=== PATIENT | female | born 1940 | race Caucasian/White ===

== ENCOUNTER 2018-01-23 13:57 | Inpatient (IN) ==
[2018-01-23] MEDS ORDERED: MethylPREDNISolone Sod Succinate Inj 125 MG/2 ML Vial IV.PUSH ONE (14:17)
--- NOTE | 2018-01-23 14:29 | ED ---
HPI General Chief Complaint: Respiratory Symptoms Stated Complaint: cough x Friday Time Seen by Provider: 01/23/18 14:11 Source: patient Mode of arrival: ambulatory Limitations: no limitations History of Present Illness The patient is a 77-year-old female who presents to the emergency department for shortness of breath. The patient states her started on Friday with a dry nonproductive cough. The patient now complains of a productive cough producing yellow to brown sputum, occasional blood within the sputum. The patient also notes increased work of breathing, worse with exertion and talking. The patient does have a history of COPD and was seen in the past by Dr. 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 The patient denies being on oxygen at home and does not use nebulizers at home. The patient states she has a history of allergies to cortisone secondary to injections and possibly prednisone. The patient is unsure if she has allergies to Solu-Medrol and Decadron. The patient denies any recent hospitalizations, travel, or surgeries. The patient denies any lower extremity edema. The patient denies any history of pulmonary embolism, DVT, or congestive heart failure. Symptoms are moderate and progressive. She denies any chest pain or tightness. MD Complaint: Reports shortness of breath Onset (ago): day(s) Context: Reports recent illness Severity: moderate Consistency/Duration: progressively worsening Relieving factors: nothing Exacerbating factors: exertion, coughing and talking Known history of: Reports COPD Associated symptoms: Reports cough, wheezing, sputum production and nausea/ vomiting Treatment prior to arrival: Reports none Related Data Home oxygen amount: none Home Medications Medication Instructions Recorded Confirmed levothyroxine 88 mcg PO DAILY 01/23/18 01/23/18 lisinopril-hydrochlorothiazide 1 tab PO DAILY 01/23/18 01/23/18 Allergies Allergy/AdvReac Type Severity Reaction Status Date / Time cortisone Allergy Severe THROAT Verified 01/23/18 14:02 CLOSES Review of Systems ROS: all other systems reviewed are negative [facility] Medical History Medical History COPD (chronic obstructive pulmonary disease) (Acute) Hypertension (Acute) Thyroid disease (Acute) Arthrosis of knee (Acute) Bilateral femoral hernia (Acute) History of hysterectomy (Acute) Surgical History Surgical History H/O thyroidectomy (Acute) History of appendectomy (Acute) History of tubal ligation (Acute) Social History Social History Substance History: No History of Abuse Second Hand Smoke Exposure: No Smoking Status: Never smoker How Often Do You Have a Drink Containing Alcohol: Never Recent Travel in [facility] within the Last 8 Weeks: No Recent Out of Country Travel within the Last 8 Weeks: No Exam Narrative Exam Narrative: GENERAL: Pleasant 77-year-old female who appears her stated age and is in moderate respiratory distress. SKIN: Focused skin assessment warm/dry. HEAD: Atraumatic. Normocephalic. EYES: Pupils equal and round. No scleral icterus. No injection or drainage. ENT: No nasal bleeding or discharge. Mucous membranes pink and moist. NECK: Trachea midline. No JVD. CARDIOVASCULAR: Regular, tachycardic with a heart rate of 110. RESPIRATORY: Tachypnea with a respiratory rate of 30. Supraclavicular retractions noted. Tight breath sounds throughout with noted wheezing. GASTROINTESTINAL: Abdomen soft, non-tender, nondistended. MUSCULOSKELETAL: No obvious deformities. No clubbing. No cyanosis. No edema. Calves are soft bilaterally. NEUROLOGICAL: Awake and alert. No obvious cranial nerve deficits. Motor grossly within normal limits. Normal speech. PSYCHIATRIC: Appropriate mood and affect; insight and judgment normal. Course Initial Documented Vital Signs Temperature 98.6 F 01/23/18 14:02 Pulse Rate 112 H 01/23/18 14:02 Respiratory Rate 18 01/23/18 14:02 Blood Pressure 136/61 01/23/18 14:02 Pulse Oximetry 98 01/23/18 14:02 Last Documented Vital Signs Temperature 98.6 F 01/23/18 14:02 Pulse Rate 105 H 01/23/18 15:03 Respiratory Rate 28 H 01/23/18 15:03 Blood Pressure 136/61 01/23/18 14:02 Pulse Oximetry 84 L 01/23/18 15:01 Medical Decision Making [facility] Narrative Medical decision making narrative: IV was established, labs are drawn and sent, and the patient was placed on cardiac telemetry monitoring and continuous pulse oximetry monitoring. The patient was administered duo nebs x3. The patient states she has a history of allergies to cortisone and prednisone, however, is unsure if she has an allergy to Solu-Medrol or Decadron. Therefore, the patient was administered Solu-Medrol 125 mg intravenously and was monitored closely in the emergency department. Chest x-ray was obtained. EKG was ordered and interpreted. Chest x-ray was unremarkable except for mild interstitial prominence and poor inspiratory effort. Potassium is low at 2.7, was replaced orally. The patient was reevaluated after nebulizers, still had tachypnea and increased work of breathing. The patient ambulated to the bathroom and her O2 sat on room air was 84%. The patient will require admission for steroids, nebulizers, and oxygen therapy. The patient agrees to plan of care. Medical Screen Exam Complete: Yes Emergency Medical Condition: Yes Differential Diagnosis Differential Diagnosis: Differential diagnosis includes COPD exacerbation, bronchitis, pneumonia, pulmonary embolism, acute coronary syndrome, pleural effusion, pneumonitis. Lab Data Lab results reviewed: Yes I reviewed the patient's lab results. Result diagrams: 01/23/18 14:25 01/23/18 14:25 Lab Results 01/23/18 01/23/18 01/23/18 Range/Units 14:25 14:25 14:25 CBC w Diff Auto diff final WBC 6.8 (4.0-11.0) th/mm3 RBC 5.34 H (4.00-5.30) mil/mm3 Hgb 15.2 (11.6-15.3) gm/dL Hct 44.1 (35.0-46.0) % MCV 82.6 (80.0-100.0) fL MCH 28.4 (27.0-34.0) pg MCHC 34.4 (32.0-36.0) % RDW 13.4 (11.6-17.2) % Plt Count 214 (150-450) th/mm3 MPV 8.6 (7.0-11.0) fL Neut % (Auto) 53.0 (16.0-70.0) % Lymph % (Auto) 33.0 (9.0-44.0) % [place] % (Auto) 10.6 H (0.0-8.0) % Eos % (Auto) 2.8 (0.0-4.0) % Baso % (Auto) 0.6 (0.0-2.0) % Neut # (Auto) 3.7 (1.8-7.7) th/mm3 Lymph # (Auto) 2.2 (1.0-4.8) th/mm3 [place] # (Auto) 0.7 (0.0-0.9) th/mm3 Eos # (Auto) 0.2 (0.0-0.4) th/mm3 Baso # (Auto) 0.0 (0.0-0.2) th/mm3 WBC Differential . Differential Comment . Sodium 140 (136-145) meq/L Potassium 2.7 L* (3.5-5.1) meq/L Chloride 99 (98-107) meq/L Carbon Dioxide 30.5 (21.0-32.0) meq/L Anion Gap 11 (5-15) meq/L BUN 20 H (7-18) mg/dL Creatinine 1.10 H (0.50-1.00) mg/dL Estimated GFR 48 L (>89) mL/min Random Glucose 154 H (74-106) mg/dL Calcium 8.3 L (8.5-10.1) mg/dL Magnesium 2.0 (1.5-2.5) mg/dL Total Bilirubin 0.8 (0.2-1.0) mg/dL AST 30 (15-37) U/L ALT 25 (10-53) U/L Alkaline Phosphatase 76 (45-117) U/L Troponin I Less than 0.02 L (0.02-0.05) ng/mL B-Natriuretic Peptide 5 (0-100) pg/mL Total Protein 7.6 (6.4-8.2) g/dL Albumin 3.6 (3.4-5.0) g/dL Imaging Data Attestation: I personally reviewed and interpreted this imaging study as follows : Radiologist's impression: Chest X-Ray 01/23/18 14:17 CONCLUSION: Cardiomegaly with mild interstitial prominence Discharge Plan Discharge Disposition Patient Disposition: 30 Still Patient Discharge Condition Condition: Stable Discharge Details Diagnosis: COPD exacerbation, Hypoxia Physicians Team ED Provider: Gato Manning Primary Care Provider: Catracho Rubio Rxs /Orders / Referrals /Forms Prescriptions: No Action levothyroxine 88 mcg Tablet 88 mcg PO DAILY RF: 0 lisinopril-hydrochlorothiazide 20-12.5 mg Tablet 1 tab PO DAILY RF: 0 Status ED Status: Pending Admission
[2018-01-23 14:39] LABS: Baso % (Auto) 0.6 % (0.0-2.0); Eos # (Auto) 0.2 th/mm3 (0.0-0.4); Eos % (Auto) 2.8 % (0.0-4.0); Hematocrit 44.1 % (35.0-46.0); Hemoglobin 15.2 gm/dL (11.6-15.3); Lymph # (Auto) 2.2 th/mm3 (1.0-4.8); Mean Corpuscular HGB Conc 34.4 % (32.0-36.0); Mean Corpuscular Hemoglobin 28.4 pg (27.0-34.0); Mean Corpuscular Volume 82.6 fL (80.0-100.0); Mean Platelet Volume 8.6 fL (7.0-11.0); Mono # (Auto) 0.7 th/mm3 (0.0-0.9); Mono % (Auto) 10.6 % (0.0-8.0); Neut # (Auto) 3.7 th/mm3 (1.8-7.7); Platelet Count 214 th/mm3 (150-450); Red Blood Count 5.34 mil/mm3 (4.00-5.30); Red Cell Distribution Width 13.4 % (11.6-17.2); White Blood Count 6.8 th/mm3 (4.0-11.0)
[2018-01-23] MEDS ORDERED: Sodium Chlor 0.9% Inj 500 ML IV.SIG SCH (15:00)
[2018-01-23 15:13] LABS: Alanine Aminotransferase 25 U/L (10-53); Albumin 3.6 g/dL (3.4-5.0); Alkaline Phosphatase 76 U/L (45-117); Anion Gap 11 meq/L (5-15); Aspartate Aminotransferase 30 U/L (15-37); Blood Urea Nitrogen 20 mg/dL (7-18); Calcium 8.3 mg/dL (8.5-10.1); Carbon Dioxide 30.5 meq/L (21.0-32.0); Chloride 99 meq/L (98-107); Glomerular Filtration Rate 48 mL/min (>89); Glucose,Random 154 mg/dL (74-106); Sodium 140 meq/L (136-145)
--- NOTE | 2018-01-23 15:18 | XR ---
EXAM DATE: 01/23/2018 2:17 PM EDT AGE/SEX: 77 years / Female INDICATIONS: Cough. CLINICAL DATA: This is the patient's initial encounter. Patient reports that signs and symptoms have been present for 2 days and indicates a pain score of 0/10. MEDICAL/SURGICAL HISTORY: Hypertension. None. COMPARISON: [facility], XR CHEST PA AND LAT, 02/19/2016. . FINDINGS: Mild interstitial prominence. Minimal bibasilar parenchymal changes. Mild cardiomegaly. No pneumothor ax. No pleural effusion. CONCLUSION: Cardiomegaly with mild interstitial prominence Electronically signed by: Jesus Colunga MD 01/23/2018 3:17 PM EDT
[2018-01-23 15:22] LABS: Total Protein 7.6 g/dL (6.4-8.2)
[2018-01-23 15:26] LABS: Potassium 2.7 meq/L (3.5-5.1)
[2018-01-23] MEDS ORDERED: Acetaminophen 325 MG Tablet PO PRN (15:48)
[2018-01-23] MEDS: guaiFENesin 600 MG ER Tablet PO SCH (22:37)
[2018-01-23] MEDS: MethylPREDNISolone Sod Succinate Inj 40 MG/ML Vial IV.PUSH SCH (22:38)
[2018-01-23] MEDS: Budesonide-Formoterol 160/4.5 MCG 6 GM Inhaler INH SCH (22:38)
[2018-01-24 07:01] LABS: Baso % (Auto) 0.3 % (0.0-2.0); Eos % (Auto) 0.1 % (0.0-4.0); Hematocrit 42.6 % (35.0-46.0); Hemoglobin 13.8 gm/dL (11.6-15.3); Lymph # (Auto) 0.8 th/mm3 (1.0-4.8); Lymph % (Auto) 18.5 % (9.0-44.0); Mean Corpuscular HGB Conc 32.5 % (32.0-36.0); Mean Corpuscular Hemoglobin 27.9 pg (27.0-34.0); Mean Corpuscular Volume 85.8 fL (80.0-100.0); Mean Platelet Volume 8.5 fL (7.0-11.0); Mono # (Auto) 0.1 th/mm3 (0.0-0.9); Mono % (Auto) 2.9 % (0.0-8.0); Neut # (Auto) 3.5 th/mm3 (1.8-7.7); Neut % (Auto) 78.2 % (16.0-70.0); Platelet Count 189 th/mm3 (150-450); Red Blood Count 4.96 mil/mm3 (4.00-5.30); Red Cell Distribution Width 12.9 % (11.6-17.2); White Blood Count 4.4 th/mm3 (4.0-11.0)
[2018-01-24] MEDS: Levothyroxine 88 MCG Tablet PO SCH (07:22)
[2018-01-24] MEDS: MethylPREDNISolone Sod Succinate Inj 40 MG/ML Vial IV.PUSH SCH ×3 (07:22→21:03)
[2018-01-24 07:37] LABS: Alanine Aminotransferase 23 U/L (10-53); Albumin 3.2 g/dL (3.4-5.0); Alkaline Phosphatase 62 U/L (45-117); Anion Gap 8 meq/L (5-15); Aspartate Aminotransferase 19 U/L (15-37); Blood Urea Nitrogen 21 mg/dL (7-18); Calcium 8.3 mg/dL (8.5-10.1); Chloride 104 meq/L (98-107); Glomerular Filtration Rate 79 mL/min (>89); Glucose,Random 162 mg/dL (74-106); Potassium 3.9 meq/L (3.5-5.1); Sodium 141 meq/L (136-145); Total Protein 7.1 g/dL (6.4-8.2)
[2018-01-24] MEDS: Lisinopril 20 MG Tablet PO SCH (09:45)
[2018-01-24] MEDS: guaiFENesin 600 MG ER Tablet PO SCH (09:45)
[2018-01-24] MEDS: Tiotropium Bromide 18 MCG/ACT Inhaler INH SCH (09:46)
[2018-01-24] MEDS: Budesonide-Formoterol 160/4.5 MCG 6 GM Inhaler INH SCH ×2 (09:46→20:55)
--- NOTE | 2018-01-24 12:44 | ECG ---
Date Performed: 01/23/2018 Time Performed: 20:40:09 PTAGE: 77 years EKG: Sinus rhythm NONSPECIFIC T-WAVE ABNORMALITY BORDERLINE ECG Since PREVIOUS TRACING , no significant change noted PREVIOUS TRACIN10/19/2012 10.19 DOCTOR: Alvin Montenegro Interpretating Date/Time 01/24/2018 12:43:07
--- NOTE | 2018-01-24 12:47 | P.HP ---
History of Present Illness Primary Care Physician: Catracho Rubio MD Chief Complaint: Shortness of breath History of Present Illness: 77-year-old female with past medical history of COPD, hyperlipidemia, obstructive sleep apnea, presented to the ED for evaluation of nonproductive cough and shortness of breath times 10-day duration however worse since Friday. Patient denies any febrile episode. She reported increasing shortness of breath with exertion and slight activity. Any oxygen at home and currently does not use any nebulizer. 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 She denies any chest pain, GI bleed, or lower extremity edema. This morning when patient was seen, she reported improvement of her symptoms however she still wheezing. - Diagnosis (1) COPD exacerbation (2) Hypoxia Review of Systems All other systems reviewed negative except as stated in HPI [facility] - History History Provided By: Patient - Medical History Medical History: Medical History (Last Updated 01/23/18 @ 14:50 by Karen Aguilar RN) COPD (chronic obstructive pulmonary disease) Hypertension Thyroid disease Arthrosis of knee Bilateral femoral hernia History of hysterectomy - Surgical History Surgical History: Surgical History (Last Updated 01/23/18 @ 14:54 by Karen Aguilar RN) H/O thyroidectomy History of appendectomy History of tubal ligation - Family History Family History: Family History (Last Updated 01/24/18 @ 12:42 by Jean Paul Peace MD) Other Heart disease - Tobacco History Second Hand Smoke Exposure: Yes Tobacco Use In Past 30 Days: No Smoking Status: Never smoker - Alcohol History How Often Do You Have a Drink Containing Alcohol: 2 to 4 times a month - Substance Use History Substance History: No History of Abuse - Travel History Recent Travel in the [place] Within the Last 8 Weeks: No Recent Travel Out of the Country Within the Last 8 Weeks: No - Immunization History Tetanus Immunization: Unsure Medications and Allergies Active Medications: Active Medications Acetaminophen (Tylenol) 650 mg PO Q4H PRN PRN Reason: Temp > 100.4 Al Hydroxide/Mg Hydroxide (Milk Of [place] Liq) 30 ml PO Q12H PRN PRN Reason: Mild Constipation Albuterol (Duoneb Neb (Prn)) 1 ampul NEB Q2HR NEB PRN PRN Reason: SHORTNESS OF BREATH Last Admin: 01/24/18 04:12 Dose: 1 ampul Albuterol (Duoneb Neb (Virgie)) 1 ampul NEB Q6HR WHILE AWAKE NEB [facility] Last Admin: 01/24/18 07:53 Dose: 1 ampul Azithromycin (Zithromax) 250 mg PO DAILY [facility] Benzonatate (Tessalon Perles) 100 mg PO Q8H PRN PRN Reason: COUGH Budesonide/Formoterol Fumarate (Symbicort 160/4.5 Mcg Inh) 2 puff INH BID [facility] Last Admin: 01/24/18 09:46 Dose: Not Given Hydrochlorothiazide (Microzide) 12.5 mg PO DAILY [facility] Last Admin: 01/24/18 09:44 Dose: 12.5 mg Sodium Chloride (Ns Inj) 500 mls @ 0 mls/hr IV.SIG BOLUS [facility] Last Infusion: 01/23/18 15:09 Dose: Infused Levothyroxine Sodium (Synthroid) 88 mcg PO DAILY@0600 [facility] Last Admin: 01/24/18 07:22 Dose: 88 mcg Lisinopril (Prinivil) 20 mg PO DAILY [facility] Last Admin: 01/24/18 09:45 Dose: 20 mg Methylprednisolone Sodium Succinate (Solumedrol Inj) 40 mg IV.PUSH Q8HR [facility] Last Admin: 01/24/18 07:22 Dose: 40 mg Ondansetron HCl (Zofran Inj) 4 mg IV.PUSH Q6H PRN PRN Reason: NAUSEA OR VOMITING Tiotropium [place] (Spiriva 18 Mcg Inh) 18 mcg INH DAILY [facility] Last Admin: 01/24/18 09:46 Dose: Not Given Allergies Allergy/AdvReac Type Severity Reaction Status Date / Time cortisone Allergy Severe THROAT Verified 01/23/18 14:02 CLOSES Home Medications Medication Instructions Recorded Confirmed Type levothyroxine 88 mcg PO DAILY 01/23/18 01/23/18 History lisinopril-hydrochlorothiazide 1 tab PO DAILY 01/23/18 01/23/18 History Exam Vital signs: Vital Signs 01/23/18 14:02 01/23/18 14:26 01/23/18 14:27 Temperature 98.6 F Pulse Rate 112 H Respiratory Rate 18 Blood Pressure 136/61 Pulse Oximetry 98 91 L 91 L 01/23/18 14:38 01/23/18 14:47 01/23/18 15:01 Temperature Pulse Rate 100 H 105 H Respiratory Rate 28 H 24 Blood Pressure Pulse Oximetry 94 L 84 L 01/23/18 15:03 01/23/18 16:01 01/23/18 16:02 Temperature Pulse Rate 105 H 109 H Respiratory Rate 28 H 18 Blood Pressure 101/50 L Pulse Oximetry 93 L 94 L 01/23/18 16:52 01/23/18 17:58 01/23/18 20:00 Temperature 98.2 F 97.6 F Pulse Rate 100 H 96 H 88 Respiratory Rate 20 18 16 Blood Pressure 105/60 113/58 L 115/58 L Pulse Oximetry 93 L 95 93 L 01/23/18 23:55 01/24/18 04:10 01/24/18 07:53 Temperature 97.8 F Pulse Rate 85 75 70 Respiratory Rate 16 18 18 Blood Pressure 112/60 Pulse Oximetry 94 L 94 L 94 L 01/24/18 08:00 01/24/18 12:00 Temperature 96.4 F L 97.2 F L Pulse Rate 104 H 89 Respiratory Rate 18 18 Blood Pressure 106/56 L 122/60 Pulse Oximetry 91 L 94 L Intake & Output 01/23/18 01/24/18 01/24/18 18:59 06:59 18:59 Intake Total 740 / 740 Balance 740 / 740 Weight 62.5 kg 63.3 kg Intake: IV 500 / 500 NS Inj 500 ML @ Wide Open IV. 500 / 500 SIG BOLUS VIRGIE Rx#:[id number] Oral 240 / 240 Other: # Voids 0 3 # Bowel Movements 0 Narrative: GENERAL: NAD SKIN: Warm and dry. HEAD: Atraumatic. Normocephalic. EYES: Pupils equal and round. No scleral icterus. No injection or drainage. ENT: No nasal bleeding or discharge. Mucous membranes pink and moist. NECK: Trachea midline. No JVD. CARDIOVASCULAR: Regular rate and rhythm. RESPIRATORY: No accessory muscle use. Clear to auscultation. Breath sounds equal bilaterally. +exp Bilateral wheezing GASTROINTESTINAL: Abdomen soft, non-tender, nondistended. Hepatic and splenic margins not palpable. MUSCULOSKELETAL: Extremities without clubbing, cyanosis, or edema. No obvious deformities. NEUROLOGICAL: Awake and alert. No obvious cranial nerve deficits. Motor grossly within normal limits. Five out of 5 muscle strength in the arms and legs. Normal speech. PSYCHIATRIC: Appropriate mood and affect; insight and judgment normal. Results - Labs CBC & Chem 7: 01/24/18 06:36 01/24/18 06:36 Labs: Laboratory Results - last 24 hr 01/23/18 01/23/18 01/23/18 14:25 14:25 14:25 CBC w Diff Auto diff final WBC 6.8 RBC 5.34 H Hgb 15.2 Hct 44.1 MCV 82.6 MCH 28.4 MCHC 34.4 RDW 13.4 Plt Count 214 MPV 8.6 Neut % (Auto) 53.0 Lymph % (Auto) 33.0 [place] % (Auto) 10.6 H Eos % (Auto) 2.8 Baso % (Auto) 0.6 Neut # (Auto) 3.7 Lymph # (Auto) 2.2 [place] # (Auto) 0.7 Eos # (Auto) 0.2 Baso # (Auto) 0.0 WBC Differential . Differential Comment . Sodium 140 Potassium 2.7 L* Chloride 99 Carbon Dioxide 30.5 Anion Gap 11 BUN 20 H Creatinine 1.10 H Estimated GFR 48 L Random Glucose 154 H Calcium 8.3 L Magnesium 2.0 Total Bilirubin 0.8 AST 30 ALT 25 Alkaline Phosphatase 76 Troponin I Less than 0.02 L B-Natriuretic Peptide 5 Total Protein 7.6 Albumin 3.6 01/24/18 01/24/18 06:36 06:36 CBC w Diff Auto diff final WBC 4.4 RBC 4.96 Hgb 13.8 Hct 42.6 MCV 85.8 MCH 27.9 MCHC 32.5 RDW 12.9 Plt Count 189 MPV 8.5 Neut % (Auto) 78.2 H Lymph % (Auto) 18.5 [place] % (Auto) 2.9 Eos % (Auto) 0.1 Baso % (Auto) 0.3 Neut # (Auto) 3.5 Lymph # (Auto) 0.8 L [place] # (Auto) 0.1 Eos # (Auto) 0.0 Baso # (Auto) 0.0 WBC Differential . Differential Comment . Sodium 141 Potassium 3.9 D Chloride 104 Carbon Dioxide 29.0 Anion Gap 8 BUN 21 H Creatinine 0.72 Estimated GFR 79 L Random Glucose 162 H Calcium 8.3 L Magnesium Total Bilirubin 0.6 AST 19 ALT 23 Alkaline Phosphatase 62 Troponin I B-Natriuretic Peptide Total Protein 7.1 Albumin 3.2 L - Imaging Impressions Chest X-Ray 10/12/18 14:17 CONCLUSION: Cardiomegaly with mild interstitial prominence Caprini VTE Risk Assessment Caprini VTE Risk Assessment: Moderate/High Risk (score >= 2) Caprini Risk Assessment Model: Point Value = 1 Point Value = 2 Point Value = 3 Point Value = 5 Age 41-60 Minor surgery BMI > 25 kg/m2 Swollen legs Varicose veins or History of unexplained or recurrent spontaneous Oral contraceptives or hormone replacement Sepsis (< 1 month) Serious lung disease, including pneumonia (< 1 month) Abnormal pulmonary function Acute myocardial infarction Congestive heart failure (< 1 month) History of inflammatory bowel disease Medical patient at bed rest Age 61-74 Arthroscopic surgery Major open surgery (> 45 min) Laparoscopic surgery (> 45 min) Malignancy Confined to bed (> 72 hours) Immobilizing plaster cast Central venous access Age >= 75 History of VTE Family history of VTE Factor V Leiden Prothrombin [id number] Lupus anticoagulant Anticardiolipin antibodies Elevated serum homocysteine Heparin-induced thrombocytopenia Other congenital or acquired thrombophilia Stroke (< 1 month) Elective arthroplasty Hip, pelvis, or leg fracture Acute spinal cord injury (< 1 month) Prophylaxis Regimen: Total Risk Factor Score Risk Level Prophylaxis Regimen 0-1 Low Early ambulation 2 Moderate Order ONE of the following: *Sequential Compression Device (SCD) *Heparin 5000 units SQ BID 3-4 Higher Order ONE of the following medications: *Heparin 5000 units SQ TID *Enoxaparin/Lovenox 40 mg SQ daily (WT < 150 kg, CrCl > 30 mL/min) *Enoxaparin/Lovenox 30 mg SQ daily (WT < 150 kg, CrCl > 10-29 mL/min) *Enoxaparin/Lovenox 30 mg SQ BID (WT < 150 kg, CrCl > 30 mL/min) AND/OR *Sequential Compression Device (SCD) 5 or more Highest Order ONE of the following medications: *Heparin 5000 units SQ TID (Preferred with Epidurals) *Enoxaparin/Lovenox 40 mg SQ daily (WT < 150 kg, CrCl > 30 mL/min) *Enoxaparin/Lovenox 30 mg SQ daily (WT < 150 kg, CrCl > 10-29 mL/min) *Enoxaparin/Lovenox 30 mg SQ BID (WT < 150 kg, CrCl > 30 mL/min) AND *Sequential Compression Device (SCD) Assessment and Plan - Assessment (1) COPD exacerbation Code(s): J44.1 - Chronic obstructive pulmonary disease with (acute) exacerbation Status: Acute (2) Hypoxia Code(s): R09.02 - Hypoxemia Status: Acute - Plan 77-year-old female with COPD exacerbation with hypoxia Start with Solu-Medrol IV 125 mg x1 in ED, currently on Solu-Medrol 40 mg every 8 hour Patient was started on Spiriva,Symbicort, DuoNeb scheduled and as needed, Mucinex, azithromycin Will perform walk test prior to discharge Maintain oxygen saturation above 92% Check sputum culture Pulmonary consultation as needed History of hypertension, hypothyroidism and other chronic medical conditions Continue outpatient medications Hypokalemia Resolved with replacement, continue to monitor electrolyte DVT prophylaxis: Bilateral SCDs
[2018-01-24] MEDS: Azithromycin 250 MG Tablet PO SCH (14:06)
[2018-01-24] MEDS: Benzonatate 100 MG Capsule PO PRN (20:59)
[2018-01-25] MEDS: MethylPREDNISolone Sod Succinate Inj 40 MG/ML Vial IV.PUSH SCH ×3 (05:29→22:23)
[2018-01-25] MEDS: Levothyroxine 88 MCG Tablet PO SCH (05:29)
[2018-01-25] MEDS: Benzonatate 100 MG Capsule PO PRN ×2 (05:29→20:20)
[2018-01-25] MEDS: Lisinopril 20 MG Tablet PO SCH (09:25)
[2018-01-25] MEDS: Azithromycin 250 MG Tablet PO SCH (09:28)
[2018-01-25] MEDS: Budesonide-Formoterol 160/4.5 MCG 6 GM Inhaler INH SCH ×2 (09:38→22:20)
[2018-01-25] MEDS: Tiotropium Bromide 18 MCG/ACT Inhaler INH SCH (09:38)
--- NOTE | 2018-01-25 10:44 | P.PN ---
Subjective Interval history: Follow-up COPD exacerbation/hemoptysis January 25, 2018-patient seen and examined, still with tightness along with shortness of breath. Some episode of hemoptysis. Afebrile Physical Exam Vital signs: Vital Signs 01/24/18 12:00 01/24/18 16:00 01/24/18 20:00 Temperature 97.2 F L 96.5 F L 97.8 F Pulse Rate 89 86 99 H Respiratory Rate 18 18 18 Blood Pressure 122/60 132/61 125/60 Pulse Oximetry 94 L 95 93 L 01/24/18 20:08 01/24/18 20:09 01/25/18 00:00 Temperature 97.5 F L Pulse Rate 100 H 92 H Respiratory Rate 18 Blood Pressure 121/61 Pulse Oximetry 95 95 01/25/18 07:35 01/25/18 08:00 01/25/18 08:27 Temperature 96.6 F L Pulse Rate 78 98 H Respiratory Rate 18 20 Blood Pressure 119/58 L Pulse Oximetry 90 L 96 Intake & Output 01/24/18 01/25/18 01/25/18 18:59 06:59 18:59 Intake Total 480 / 480 Balance 480 / 480 Weight 63 kg Intake: Oral 480 / 480 Other: # Voids 10 4 # Bowel Movements 0 Narrative: GENERAL: NAD SKIN: Warm and dry. HEAD: Atraumatic. Normocephalic. EYES: Pupils equal and round. No scleral icterus. No injection or drainage. ENT: No nasal bleeding or discharge. Mucous membranes pink and moist. NECK: Trachea midline. No JVD. CARDIOVASCULAR: Regular rate and rhythm. RESPIRATORY: No accessory muscle use. Clear to auscultation. Breath sounds decrease bilaterally. +exp Bilateral wheezing GASTROINTESTINAL: Abdomen soft, non-tender, nondistended. Hepatic and splenic margins not palpable. MUSCULOSKELETAL: Extremities without clubbing, cyanosis, or edema. No obvious deformities. NEUROLOGICAL: Awake and alert. No obvious cranial nerve deficits. Motor grossly within normal limits. Five out of 5 muscle strength in the arms and legs. Normal speech. PSYCHIATRIC: Appropriate mood and affect; insight and judgment normal. Results - Labs CBC & Chem 7: 01/24/18 06:36 01/24/18 06:36 Laboratory Results - last 24 hr 01/24/18 06:36 Hemoglobin A1c 6.0 Assessment and Plan - Assessment (1) COPD exacerbation Code(s): J44.1 - Chronic obstructive pulmonary disease with (acute) exacerbation Status: Acute (2) Hypoxia Code(s): R09.02 - Hypoxemia Status: Acute - Plan 77-year-old female with COPD exacerbation with hypoxia currently on Solu-Medrol 40 mg every 8 hour Continue Spiriva,Symbicort, DuoNeb scheduled and as needed, Mucinex, azithromycin Perform walk test prior to discharge Maintain oxygen saturation above 92% Check sputum culture Pulmonary consultation History of hypertension, hypothyroidism and other chronic medical conditions Continue outpatient medications Hypokalemia Resolved with replacement, continue to monitor electrolyte DVT prophylaxis: Bilateral SCDs
[2018-01-25 17:31] LABS: ABG Base Excess 1.6 mmol/L (-2-2); ABG PCO2 42 mmHg (38-42); ABG PO2 71 mmHg (61-120)
--- NOTE | 2018-01-25 21:01 | MB ---
cc: Joseline Olguin MD DATE: 01/25/2018 REASON FOR CONSULTATION: Chronic obstructive pulmonary disease. HISTORY OF PRESENT ILLNESS: This is a 77-year-old white female with a past history of COPD, obstructive sleep apnea, hyperlipidemia and hypothyroidism. She was admitted with progressive shortness of breath, cough with expectoration, wheezing over the past 2 weeks. The patient has a history for recurrent exacerbations of bronchitis. She was bringing up thick foamy mucus. She has not been on any oxygen at home. The patient did have a sleep study and was found to have obstructive sleep apnea and was given a CPAP mask, but has refused to wear it. She denied any chest pain. She denied hemoptysis, fevers or chills. PAST MEDICAL HISTORY: The patient's past history includes a history of hypertension, history of COPD with emphysema, history of arthritis, arthroscopy of the left knee. PAST SURGICAL HISTORY: Hysterectomy and tubal ligation, appendectomy, partial bowel resection for diverticulitis, total thyroidectomy for carcinoma of the thyroid. ALLERGIES: NO KNOWN DRUG ALLERGIES. FAMILY HISTORY: Significant for COPD in her father. Mother of Alzheimer's disease. SUBJECTIVE: The patient does not smoke. She has been exposed to secondhand smoke for over 20 years. No significant alcohol use. MEDICATIONS: List was reviewed from the chart, which included: 1. DuoNeb solution q.i.d. 2. Zithromax 250 mg a day. 3. Symbicort 160/4.5 mcg 2 puffs b.i.d. 4. Lisinopril 20 mg daily. 5. Synthroid 88 mcg daily. 6. Spiriva 1 capsule a day. REVIEW OF SYSTEMS: The patient has gained weight. She has leg swelling. She does have a postnasal drip. There is epigastric distress. She denies any abdominal pain, nausea or GI bleed. No urinary symptoms. No skin lesions. She has had some anxiety with depression. PHYSICAL EXAMINATION: GENERAL: A moderately overweight, elderly, white female in moderate respiratory distress. VITAL SIGNS: Blood pressure 138/80, blood pressure is 110/70, pulse is 105, respirations 22, temperature 97.2. HEENT: Head is normocephalic. Pupils reactive and equal. Tongue is moist. Throat was mildly injected. Nasal mucosa edematous. NECK: Supple, no bruits. No thyroid enlargement or lymphadenopathy. CHEST: Distant breath sounds with expiratory wheezes throughout both lung gruber, prolonged expirations. No crackles. HEART: Sounds regular S1 and S2. No murmur. ABDOMEN: Soft, protuberant without masses. No organomegaly or tenderness. Bowel sounds are active. EXTREMITIES: Minimal edema with decreased peripheral pulses. Reflexes are 1+ with no gross motor deficits. Cranial nerves grossly intact. SKIN: No lesions observed. IMPRESSION: 1. Chronic obstructive pulmonary disease with acute exacerbation. 2. Asthmatic bronchitis. 3. Hypertension and hypothyroidism. 4. Interstitial lung disease. PLAN: The patient will be maintained on O2 at 2 liters. A blood gas study will be obtained. Nebulized DuoNeb solution added q.i.d. and p.r.n. We will also continue the Symbicort 160/4.5 mcg 2 puffs twice a day and 6-minute walk test to be done. If she qualifies, home oxygen will be prescribed as well. She was urged to use a CPAP mask when she gets home. The patient's previous CT scan will be requested that was recently done at the [facility]. I will follow the case with you, Dr. Peace. Thank you for this consultation. Joseline Olguin MD VJD/austin , 05:06 PM , 05:20 PM
[2018-01-26] MEDS: MethylPREDNISolone Sod Succinate Inj 40 MG/ML Vial IV.PUSH SCH ×3 (05:22→21:44)
[2018-01-26] MEDS: Levothyroxine 88 MCG Tablet PO SCH (05:22)
[2018-01-26] MEDS: Benzonatate 100 MG Capsule PO PRN ×3 (05:22→21:44)
[2018-01-26] MEDS: Budesonide-Formoterol 160/4.5 MCG 6 GM Inhaler INH SCH ×2 (08:13→21:41)
[2018-01-26] MEDS: Lisinopril 20 MG Tablet PO SCH (08:13)
[2018-01-26] MEDS: Tiotropium Bromide 18 MCG/ACT Inhaler INH SCH (08:13)
[2018-01-26] MEDS: Azithromycin 250 MG Tablet PO SCH (08:13)
--- NOTE | 2018-01-26 10:29 | P.PN ---
Subjective Interval history: Follow-up COPD exacerbation/hemoptysis January 25, 2018-patient seen and examined, still with tightness along with shortness of breath. Some episode of hemoptysis. Afebrile January 26, 2018-patient seen and examined, still with significant shortness of breath however without any hemoptysis. Now with cough production. Afebrile. Physical Exam Vital signs: Vital Signs 01/25/18 12:00 01/25/18 16:00 01/25/18 20:00 Temperature 96.3 F L 97.4 F L 98.3 F Pulse Rate 88 81 90 Respiratory Rate 20 20 16 Blood Pressure 135/61 111/59 L 123/73 Pulse Oximetry 93 L 92 L 93 L 01/25/18 20:20 01/25/18 22:00 01/26/18 00:00 Temperature 97.8 F Pulse Rate 93 H 105 H Respiratory Rate 20 16 Blood Pressure 103/61 Pulse Oximetry 94 L 93 L 93 L 01/26/18 07:41 01/26/18 08:00 Temperature 96.8 F L Pulse Rate 77 111 H Respiratory Rate 18 18 Blood Pressure 126/60 Pulse Oximetry 94 L 93 L Intake & Output 01/25/18 01/26/18 01/26/18 18:59 06:59 18:59 Intake Total 600 / 600 Balance 600 / 600 Weight 62.7 kg Intake: Oral 600 / 600 Other: # Voids 10 Date of Last Bowel Movement 01/25/18 01/25/18 Narrative: GENERAL: NAD SKIN: Warm and dry. HEAD: Atraumatic. Normocephalic. EYES: Pupils equal and round. No scleral icterus. No injection or drainage. ENT: No nasal bleeding or discharge. Mucous membranes pink and moist. NECK: Trachea midline. No JVD. CARDIOVASCULAR: Regular rate and rhythm. RESPIRATORY: No accessory muscle use. Clear to auscultation. Breath sounds decrease bilaterally. +exp Bilateral wheezing GASTROINTESTINAL: Abdomen soft, non-tender, nondistended. Hepatic and splenic margins not palpable. MUSCULOSKELETAL: Extremities without clubbing, cyanosis, or edema. No obvious deformities. NEUROLOGICAL: Awake and alert. No obvious cranial nerve deficits. Motor grossly within normal limits. Five out of 5 muscle strength in the arms and legs. Normal speech. PSYCHIATRIC: Appropriate mood and affect; insight and judgment normal. Results - Labs CBC & Chem 7: 01/24/18 06:36 01/24/18 06:36 Laboratory Results - last 24 hr 01/25/18 17:25 Puncture Site Right radial Patient Temperature 98.6 O2 Saturation 92 ABG pH 7.41 ABG pCO2 42 ABG pO2 71 ABG HCO3 26 ABG O2 Content 17.9 ABG Base Excess 1.6 ABG Methemoglobin 1.4 Phil Test Present Hemoglobin 13.8 Carboxyhemoglobin 1.0 O2 Delivery Device Nasal cannula Liter Flow 1.00 Critical Value No Assessment and Plan - Assessment (1) COPD exacerbation Code(s): J44.1 - Chronic obstructive pulmonary disease with (acute) exacerbation Status: Acute (2) Hypoxia Code(s): R09.02 - Hypoxemia Status: Acute - Plan 77-year-old female with COPD exacerbation with hypoxia Continue Solu-Medrol 40 mg every 8 hour Continue Spiriva,Symbicort, DuoNeb scheduled and as needed, Mucinex, azithromycin Perform walk test prior to discharge Maintain oxygen saturation above 92% Appreciate input from pulmonary medicine History of obstructive sleep apnea Advised to use her own CPAP History of hypertension, hypothyroidism and other chronic medical conditions Continue outpatient medications Hypokalemia Resolved with replacement, continue to monitor electrolyte DVT prophylaxis: Bilateral SCDs Change admission to inpatient
--- NOTE | 2018-01-26 17:59 | P.PN ---
Subjective Interval history: She is better. No hemoptysis. O2 sat 97 on O2 . Sputum is clear. Still has some cough and wheezing. Physical Exam Vital signs: Vital Signs 01/25/18 20:00 01/25/18 20:20 01/25/18 22:00 Temperature 98.3 F Pulse Rate 90 93 H Respiratory Rate 16 20 Blood Pressure 123/73 Pulse Oximetry 93 L 94 L 93 L 01/26/18 00:00 01/26/18 07:41 01/26/18 08:00 Temperature 97.8 F 96.8 F L Pulse Rate 105 H 77 111 H Respiratory Rate 16 18 18 Blood Pressure 103/61 126/60 Pulse Oximetry 93 L 94 L 93 L 01/26/18 11:36 01/26/18 13:07 01/26/18 15:47 Temperature 97.1 F L 96.9 F L Pulse Rate 108 H 77 83 Respiratory Rate 18 16 18 Blood Pressure 128/71 123/62 Pulse Oximetry 93 L 93 L Intake & Output 01/25/18 01/26/18 01/26/18 18:59 06:59 18:59 Intake Total 600 / 600 Balance 600 / 600 Weight 62.7 kg Intake: Oral 600 / 600 Other: # Voids 10 5 Date of Last Bowel Movement 01/25/18 01/25/18 Narrative: GENERAL: Elderly W/F alert in NAD SKIN: Warm and dry. HEAD: Atraumatic. Normocephalic. EYES: Pupils equal and round. No scleral icterus. No injection or drainage. ENT: No nasal bleeding or discharge. Mucous membranes pink and moist. NECK: Trachea midline. No JVD. CARDIOVASCULAR: Regular rate and rhythm. RESPIRATORY: No accessory muscle use. Breath sounds decrease bilaterally. + expiratory wheezing GASTROINTESTINAL: Abdomen soft, non-tender, nondistended. Hepatic and splenic margins not palpable. MUSCULOSKELETAL: Extremities without clubbing, cyanosis, or edema. No obvious deformities. NEUROLOGICAL: Awake and alert. No obvious cranial nerve deficits. Motor grossly within normal limits. Five out of 5 muscle strength in the arms and legs. Normal speech. PSYCHIATRIC: Appropriate mood and affect; insight and judgment normal. Results - Labs CBC & Chem 7: 01/24/18 06:36 01/24/18 06:36 Assessment and Plan - Assessment (1) Asthmatic bronchitis Code(s): J45.909 - Unspecified asthma, uncomplicated Status: Acute (2) Asthmatic bronchitis with acute exacerbation Code(s): J45.901 - Unspecified asthma with (acute) exacerbation Status: Acute (3) COPD exacerbation Code(s): J44.1 - Chronic obstructive pulmonary disease with (acute) exacerbation Status: Acute (4) Hypoxia Code(s): R09.02 - Hypoxemia Status: Acute (5) Sleep apnea Code(s): G47.30 - Sleep apnea, unspecified Status: Acute (6) Hypothyroidism Code(s): E03.9 - Hypothyroidism, unspecified Status: Acute - Plan 1. Will Wean O2 and arrange home O2 2 L if sats <89 on RA. 2. Continue antibiotics, Zithromax, Rocephin 3. Duoneb nebs qid. 4. Get PFT with Broncho 5. Continue Symbicort 160/4. 5 mcg , 2 puffs BID 6. May use home CPAP machine 7. Taper solumedrol to BID in am
[2018-01-27] MEDS: Benzonatate 100 MG Capsule PO PRN ×3 (05:05→22:14)
[2018-01-27] MEDS: Levothyroxine 88 MCG Tablet PO SCH (05:05)
[2018-01-27] MEDS: MethylPREDNISolone Sod Succinate Inj 40 MG/ML Vial IV.PUSH SCH (05:05)
[2018-01-27 06:33] LABS: Baso % (Auto) 0.1 % (0.0-2.0); Eos % (Auto) 0.1 % (0.0-4.0); Hematocrit 40.2 % (35.0-46.0); Hemoglobin 13.2 gm/dL (11.6-15.3); Lymph # (Auto) 1.2 th/mm3 (1.0-4.8); Lymph % (Auto) 10.7 % (9.0-44.0); Mean Corpuscular HGB Conc 32.8 % (32.0-36.0); Mean Corpuscular Hemoglobin 28.2 pg (27.0-34.0); Mean Corpuscular Volume 85.8 fL (80.0-100.0); Mean Platelet Volume 8.1 fL (7.0-11.0); Mono # (Auto) 0.3 th/mm3 (0.0-0.9); Neut # (Auto) 9.3 th/mm3 (1.8-7.7); Neut % (Auto) 86.1 % (16.0-70.0); Platelet Count 239 th/mm3 (150-450); Red Blood Count 4.69 mil/mm3 (4.00-5.30); Red Cell Distribution Width 13.5 % (11.6-17.2); White Blood Count 10.8 th/mm3 (4.0-11.0)
[2018-01-27 06:40] LABS: Chloride 104 meq/L (98-107); Potassium 3.6 meq/L (3.5-5.1); Sodium 142 meq/L (136-145)
[2018-01-27 06:45] LABS: Anion Gap 7 meq/L (5-15); Blood Urea Nitrogen 25 mg/dL (7-18); Calcium 8.1 mg/dL (8.5-10.1); Carbon Dioxide 30.9 meq/L (21.0-32.0); Glucose,Random 149 mg/dL (74-106)
[2018-01-27 06:48] LABS: Alanine Aminotransferase 27 U/L (10-53); Aspartate Aminotransferase 15 U/L (15-37); Glomerular Filtration Rate 69 mL/min (>89)
[2018-01-27 06:50] LABS: Total Protein 6.5 g/dL (6.4-8.2)
[2018-01-27 06:51] LABS: Alkaline Phosphatase 54 U/L (45-117)
[2018-01-27] MEDS: Tiotropium Bromide 18 MCG/ACT Inhaler INH SCH (08:02)
[2018-01-27] MEDS: Budesonide-Formoterol 160/4.5 MCG 6 GM Inhaler INH SCH ×2 (08:02→20:22)
[2018-01-27] MEDS: Lisinopril 20 MG Tablet PO SCH (08:02)
[2018-01-27] MEDS: Azithromycin 250 MG Tablet PO SCH (08:02)
[2018-01-27] MEDS ORDERED: MethylPREDNISolone Sod Succinate Inj 40 MG/ML Vial IV.PUSH SCH (09:00)
--- NOTE | 2018-01-27 11:11 | P.PN ---
Subjective Interval history: Follow-up COPD exacerbation/hemoptysis January 25, 2018-patient seen and examined, still with tightness along with shortness of breath. Some episode of hemoptysis. Afebrile January 26, 2018-patient seen and examined, still with significant shortness of breath however without any hemoptysis. Now with cough production. Afebrile. January 27, 2018-patient seen and examined, still with chest tightness and shortness of breath Physical Exam Vital signs: Vital Signs 01/26/18 11:36 01/26/18 13:07 01/26/18 15:47 Temperature 97.1 F L 96.9 F L Pulse Rate 108 H 77 83 Respiratory Rate 16 18 Blood Pressure 128/71 123/62 Pulse Oximetry 93 L 93 L Pulse Oximetry [Exertion on Room Air] Pulse Oximetry [Exertion with Oxygen] Pulse Oximetry [Resting on Room Air] 01/26/18 19:00 01/26/18 19:54 01/26/18 20:00 Temperature 96.7 F L Pulse Rate 91 H 95 H Respiratory Rate 20 20 Blood Pressure 148/77 H Pulse Oximetry 93 L 93 L Pulse Oximetry [Exertion on Room Air] Pulse Oximetry [Exertion with Oxygen] Pulse Oximetry [Resting on Room Air] 01/27/18 00:00 01/27/18 07:38 01/27/18 07:43 Temperature 97 F L Pulse Rate 94 H 84 Respiratory Rate 20 20 Blood Pressure 130/70 Pulse Oximetry 96 94 L Pulse Oximetry [Exertion on Room Air] Pulse Oximetry [Exertion with Oxygen] Pulse Oximetry [Resting on Room Air] 01/27/18 08:00 01/27/18 08:03 Temperature 96.8 F L Pulse Rate 100 H Respiratory Rate 20 Blood Pressure 153/84 H Pulse Oximetry 96 Pulse Oximetry [Exertion on Room Air] 97 Pulse Oximetry [Exertion with Oxygen] 93 L Pulse Oximetry [Resting on Room Air] 92 L Intake & Output 01/26/18 01/27/18 01/27/18 18:59 06:59 18:59 Intake Total 365 / 365 Balance 365 / 365 Weight 63.5 kg Intake: Oral 365 / 365 Other: # Voids 5 3 # Urine Diapers 0 Date of Last Bowel Movement 01/25/18 01/26/18 Narrative: GENERAL: NAD SKIN: Warm and dry. HEAD: Atraumatic. Normocephalic. EYES: Pupils equal and round. No scleral icterus. No injection or drainage. ENT: No nasal bleeding or discharge. Mucous membranes pink and moist. NECK: Trachea midline. No JVD. CARDIOVASCULAR: Regular rate and rhythm. RESPIRATORY: No accessory muscle use. Breath sounds decrease bilaterally. + expiratory wheezing GASTROINTESTINAL: Abdomen soft, non-tender, nondistended. Hepatic and splenic margins not palpable. MUSCULOSKELETAL: Extremities without clubbing, cyanosis, or edema. No obvious deformities. NEUROLOGICAL: Awake and alert. No obvious cranial nerve deficits. Motor grossly within normal limits. Five out of 5 muscle strength in the arms and legs. Normal speech. PSYCHIATRIC: Appropriate mood and affect; insight and judgment normal. Results - Labs CBC & Chem 7: 01/27/18 06:05 01/27/18 06:05 Laboratory Results - last 24 hr 01/27/18 01/27/18 06:05 06:05 CBC w Diff Auto diff final WBC 10.8 RBC 4.69 Hgb 13.2 Hct 40.2 MCV 85.8 MCH 28.2 MCHC 32.8 RDW 13.5 Plt Count 239 MPV 8.1 Neut % (Auto) 86.1 H Lymph % (Auto) 10.7 [place] % (Auto) 3.0 Eos % (Auto) 0.1 Baso % (Auto) 0.1 Neut # (Auto) 9.3 H Lymph # (Auto) 1.2 [place] # (Auto) 0.3 Eos # (Auto) 0.0 Baso # (Auto) 0.0 WBC Differential . Differential Comment . Sodium 142 Potassium 3.6 Chloride 104 Carbon Dioxide 30.9 Anion Gap 7 BUN 25 H Creatinine 0.81 Estimated GFR 69 L Random Glucose 149 H Calcium 8.1 L Total Bilirubin 0.6 AST 15 ALT 27 Alkaline Phosphatase 54 Total Protein 6.5 D Albumin 3.0 L Assessment and Plan - Assessment (1) COPD exacerbation Code(s): J44.1 - Chronic obstructive pulmonary disease with (acute) exacerbation Status: Acute (2) Hypoxia Code(s): R09.02 - Hypoxemia Status: Acute - Plan 77-year-old female with COPD exacerbation with hypoxia Change to Solu-Medrol 40 mg every 12 hour Continue Spiriva,Symbicort, DuoNeb scheduled and as needed, Mucinex, azithromycin Perform walk test prior to discharge Maintain oxygen saturation above 92% Appreciate input from pulmonary medicine History of obstructive sleep apnea Advised to use her own CPAP History of hypertension, hypothyroidism and other chronic medical conditions Continue outpatient medications Hypokalemia Resolved with replacement, continue to monitor electrolyte DVT prophylaxis: Bilateral SCDs
--- NOTE | 2018-01-27 19:33 | P.PN ---
Subjective Interval history: She is better. No fever. has some cough and wheezing. On O2 2L. Sputum is thick Physical Exam Vital signs: Vital Signs 01/26/18 19:54 01/26/18 20:00 01/27/18 00:00 Temperature 96.7 F L 97 F L Pulse Rate 95 H 94 H Respiratory Rate 20 20 Blood Pressure 148/77 H 130/70 Pulse Oximetry 93 L 93 L 96 Pulse Oximetry [Exertion on Room Air] Pulse Oximetry [Exertion with Oxygen] Pulse Oximetry [Resting on Room Air] 01/27/18 07:00 01/27/18 07:43 01/27/18 08:00 Temperature Pulse Rate 84 Respiratory Rate 20 Blood Pressure Pulse Oximetry 94 L Pulse Oximetry [Exertion on Room Air] 97 Pulse Oximetry [Exertion with Oxygen] 93 L Pulse Oximetry [Resting on Room Air] 92 L 01/27/18 08:03 01/27/18 11:26 01/27/18 12:00 Temperature 96.8 F L 97 F L 97 F L Pulse Rate 100 H 102 H 102 H Respiratory Rate 20 20 20 Blood Pressure 153/84 H 152/85 H 152/85 H Pulse Oximetry 96 95 95 Pulse Oximetry [Exertion on Room Air] Pulse Oximetry [Exertion with Oxygen] Pulse Oximetry [Resting on Room Air] 01/27/18 14:21 01/27/18 17:12 Temperature 97.8 F Pulse Rate 84 82 Respiratory Rate 20 16 Blood Pressure 129/69 Pulse Oximetry 94 L Pulse Oximetry [Exertion on Room Air] Pulse Oximetry [Exertion with Oxygen] Pulse Oximetry [Resting on Room Air] Intake & Output 01/27/18 01/27/18 01/28/18 06:59 18:59 06:59 Intake Total 365 / 365 900 / 900 Balance 365 / 365 900 / 900 Weight 63.5 kg Intake: Oral 365 / 365 900 / 900 Other: # Voids 3 5 # Urine Diapers 0 Date of Last Bowel Movement 01/26/18 01/26/18 # Bowel Movements 1 Narrative: GENERAL:Elderly W/F in NAD SKIN: Warm and dry. HEAD: Atraumatic. Normocephalic. EYES: Pupils equal and round. No scleral icterus. No injection or drainage. ENT: No nasal bleeding or discharge. Mucous membranes pink and moist. NECK: Trachea midline. No JVD. CARDIOVASCULAR: Regular rate and rhythm. RESPIRATORY: No accessory muscle use. Breath sounds decreased bilaterally. + expiratory wheezing GASTROINTESTINAL: Abdomen soft, non-tender, nondistended. Hepatic and splenic margins not palpable. MUSCULOSKELETAL: Extremities without clubbing, cyanosis, or edema. No obvious deformities. NEUROLOGICAL: Awake and alert. No obvious cranial nerve deficits. Motor grossly within normal limits. Normal speech. PSYCHIATRIC: Appropriate mood and affect; insight and judgment normal. Results - Labs CBC & Chem 7: 01/27/18 06:05 01/27/18 06:05 Laboratory Results - last 24 hr 01/27/18 01/27/18 06:05 06:05 CBC w Diff Auto diff final WBC 10.8 RBC 4.69 Hgb 13.2 Hct 40.2 MCV 85.8 MCH 28.2 MCHC 32.8 RDW 13.5 Plt Count 239 MPV 8.1 Neut % (Auto) 86.1 H Lymph % (Auto) 10.7 [place] % (Auto) 3.0 Eos % (Auto) 0.1 Baso % (Auto) 0.1 Neut # (Auto) 9.3 H Lymph # (Auto) 1.2 [place] # (Auto) 0.3 Eos # (Auto) 0.0 Baso # (Auto) 0.0 WBC Differential . Differential Comment . Sodium 142 Potassium 3.6 Chloride 104 Carbon Dioxide 30.9 Anion Gap 7 BUN 25 H Creatinine 0.81 Estimated GFR 69 L Random Glucose 149 H Calcium 8.1 L Total Bilirubin 0.6 AST 15 ALT 27 Alkaline Phosphatase 54 Total Protein 6.5 D Albumin 3.0 L Assessment and Plan - Assessment (1) Asthmatic bronchitis Code(s): J45.909 - Unspecified asthma, uncomplicated Status: Acute (2) Asthmatic bronchitis with acute exacerbation Code(s): J45.901 - Unspecified asthma with (acute) exacerbation Status: Acute (3) COPD exacerbation Code(s): J44.1 - Chronic obstructive pulmonary disease with (acute) exacerbation Status: Acute (4) Hypoxia Code(s): R09.02 - Hypoxemia Status: Acute (5) Sleep apnea Code(s): G47.30 - Sleep apnea, unspecified Status: Acute (6) Hypothyroidism Code(s): E03.9 - Hypothyroidism, unspecified Status: Acute - Plan 1. Will Wean O2 and arrange home O2 2 L if sats <89 on RA. 2. Continue antibiotics, and switch to PO ceftin 500 mg BID X7 days 3. Duoneb nebs qid. 4. Sputum culture , Gram stain 5. Continue Symbicort 160/4. 5 mcg , 2 puffs BID 6. May use home CPAP machine at HS 7. D/C solumedrol and Add Prednisone 20 mg BID to taper over 3 weeks. 8. Home in am if stable
[2018-01-27] MEDS: predniSONE 20 MG Tablet PO SCH (20:24)
[2018-01-28] MEDS: Levothyroxine 88 MCG Tablet PO SCH (05:10)
[2018-01-28] MEDS ORDERED: guaiFENesin/Dextromethorphan 200 MG/20 MG 10 ML UDC PO PRN (05:28)
[2018-01-28] MEDS: Lisinopril 20 MG Tablet PO SCH (08:24)
[2018-01-28] MEDS: predniSONE 20 MG Tablet PO SCH (08:24)
[2018-01-28] MEDS: Azithromycin 250 MG Tablet PO SCH (08:24)
[2018-01-28] MEDS: Tiotropium Bromide 18 MCG/ACT Inhaler INH SCH (08:25)
[2018-01-28] MEDS: Budesonide-Formoterol 160/4.5 MCG 6 GM Inhaler INH SCH (08:25)
--- NOTE | 2018-01-28 11:51 | P.PNIM ---
Subjective Interval history: f/u; copd exacerbation says that her sob is improving. however still has some cough. no fever. wants to go home today. Physical Exam Vital signs: Vital Signs 01/27/18 12:00 01/27/18 14:21 01/27/18 17:12 Temperature 97 F L 97.8 F Pulse Rate 102 H 84 82 Respiratory Rate 20 20 16 Blood Pressure 152/85 H 129/69 Pulse Oximetry 95 94 L 01/27/18 20:00 01/27/18 20:39 01/28/18 00:00 Temperature 97.5 F L 97.8 F Pulse Rate 87 85 82 Respiratory Rate 18 20 18 Blood Pressure 154/74 H 150/70 H Pulse Oximetry 93 L 95 95 01/28/18 08:00 01/28/18 08:07 Temperature 96.4 F L Pulse Rate 78 Respiratory Rate 22 Blood Pressure 170/88 H Pulse Oximetry 92 L 94 L Intake & Output 01/27/18 01/28/18 01/28/18 18:59 06:59 18:59 Intake Total 900 / 900 Balance 900 / 900 Weight 63.5 kg Intake: Oral 900 / 900 Other: # Voids 5 3 Date of Last Bowel Movement 01/26/18 01/26/18 # Bowel Movements 1 - Constitutional no acute distress - Routine Respiratory Exam Present: CTA bilaterally - Routine Cardiovascular Exam Present: RRR - Routine Abdominal Exam Present: soft - Routine Extremities Exam Comments: no pedal edema. - Routine Neurological Exam Present: alert, oriented X3 Results - Labs CBC & Chem 7: 01/27/18 06:05 01/27/18 06:05 Assessment and Plan - Assessment (1) COPD exacerbation Code(s): J44.1 - Chronic obstructive pulmonary disease with (acute) exacerbation Status: Acute (2) Hypoxia Code(s): R09.02 - Hypoxemia Status: Acute - Plan COPD exacerbation with hypoxia- improving. continue steroids Continue Spiriva,Symbicort, DuoNeb scheduled and as needed, Mucinex, azithromycin passed the walk test Maintain oxygen saturation above 92% Appreciate input from pulmonary medicine History of obstructive sleep apnea Advised to use her own CPAP History of hypertension, hypothyroidism and other chronic medical conditions Continue outpatient medications Hypokalemia Resolved with replacement, continue to monitor electrolyte DVT prophylaxis: Bilateral SCDs Discharge Planning: dc home today. see med list. [facility] was offered but the patient declined. f/u; pcp and pulmonary.
--- NOTE | 2018-01-28 11:57 | P.DS ---
Date of admission: 01/23/18 15:46 Primary care physician: Catracho Rubio MD Brief History from admission: 77-year-old female with past medical history of COPD, hyperlipidemia, obstructive sleep apnea, presented to the ED for evaluation of nonproductive cough and shortness of breath times 10-day duration however worse since Friday. Patient denies any febrile episode. She reported increasing shortness of breath with exertion and slight activity. Any oxygen at home and currently does not use any nebulizer. 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 She denies any chest pain, GI bleed, or lower extremity edema. This morning when patient was seen, she reported improvement of her symptoms however she still wheezing. DS: Diagnosis - Discharge Diagnosis (1) COPD exacerbation Status: Acute (2) Hypoxia Status: Acute DS: Medications - Discharge Medications Prescriptions: albuterol sulfate 2 puff INHALATION Q6H PRN #1 g PRN Reason: sob budesonide-formoterol [Symbicort] 2 puff INH BID #1 g ipratropium-albuterol 1 amp NEB Q6HR NEB PRN 30 Days ml PRN Reason: Shortness Of Breath prednisone 20 mg PO BID 5 Days #10 tab tiotropium bromide [Spiriva with HandiHaler] 18 mcg INH DAILY #1 inh DS: Summary Hospital Course: patient was admitted for COPD exacerbation. she was started on IV steroids, neb treatment and antibiotic. her clinical condition improved. she passed the walk test. she was evaluated by pulmonary. - Time Spent with Patient Total time spent providing and/or coordinating discharge services: Less than 30 minutes - Quality: VTE Deep Vein Thrombosis/Pulmonary Embolism Present on Admission: No Exam Vital signs: Vital Signs 01/27/18 12:00 01/27/18 14:21 01/27/18 17:12 Temperature 97 F L 97.8 F Pulse Rate 102 H 84 82 Respiratory Rate 20 20 16 Blood Pressure 152/85 H 129/69 Pulse Oximetry 95 94 L 01/27/18 20:00 01/27/18 20:39 01/28/18 00:00 Temperature 97.5 F L 97.8 F Pulse Rate 87 85 82 Respiratory Rate 18 20 18 Blood Pressure 154/74 H 150/70 H Pulse Oximetry 93 L 95 95 01/28/18 08:00 01/28/18 08:07 Temperature 96.4 F L Pulse Rate 78 Respiratory Rate 22 Blood Pressure 170/88 H Pulse Oximetry 92 L 94 L Intake & Output 01/27/18 01/28/18 01/28/18 18:59 06:59 18:59 Intake Total 900 / 900 Balance 900 / 900 Weight 63.5 kg Intake: Oral 900 / 900 Other: # Voids 5 3 Date of Last Bowel Movement 01/26/18 01/26/18 # Bowel Movements 1 - Constitutional no acute distress - Routine Respiratory Exam Present: CTA bilaterally - Routine Cardiovascular Exam Present: RRR - Routine Abdominal Exam Present: soft - Routine Extremities Exam Comments: no pedal edema. - Routine Neurological Exam Present: alert, oriented X3 Results Procedures completed during hospitalization: none. - Impressions ITS Impressions Chest X-Ray 01/23/18 14:17 CONCLUSION: Cardiomegaly with mild interstitial prominence Discharge Plan - Discharge Disposition Patient Disposition: 01 Discharge Home - Discharge Condition Condition: Stable - Physicians Team Primary Care Provider: Catracho Rubio Attending Provider: Demetris Merrill Other Providers: Gilmar Schafer John V, MD
[2018-01-28] MEDS: Benzonatate 100 MG Capsule PO PRN (15:10)
--- NOTE | 2018-01-28 17:57 | P.PN ---
Subjective Interval history: She is better, and on O2 2 L. Will go home today. Still has a cough . Physical Exam Vital signs: Vital Signs 01/27/18 20:00 01/27/18 20:39 01/28/18 00:00 Temperature 97.5 F L 97.8 F Pulse Rate 87 85 82 Respiratory Rate 18 20 18 Blood Pressure 154/74 H 150/70 H Pulse Oximetry 93 L 95 95 Pulse Oximetry [Exertion on Room Air] Pulse Oximetry [Exertion with Oxygen] Pulse Oximetry [Resting on Room Air] 01/28/18 08:00 01/28/18 08:07 01/28/18 12:00 Temperature 96.4 F L 97.1 F L Pulse Rate 78 83 Respiratory Rate 22 22 Blood Pressure 170/88 H 173/82 H Pulse Oximetry 92 L 94 L 93 L Pulse Oximetry [Exertion on Room Air] Pulse Oximetry [Exertion with Oxygen] Pulse Oximetry [Resting on Room Air] 01/28/18 12:51 01/28/18 14:49 Temperature Pulse Rate Respiratory Rate Blood Pressure Pulse Oximetry 92 L Pulse Oximetry [Exertion on Room Air] 85 L Pulse Oximetry [Exertion with Oxygen] 92 L Pulse Oximetry [Resting on Room Air] 90 L Intake & Output 01/27/18 01/28/18 01/28/18 18:59 06:59 18:59 Intake Total 900 / 900 Balance 900 / 900 Weight 63.5 kg Intake: Oral 900 / 900 Other: # Voids 5 3 Date of Last Bowel Movement 01/26/18 01/26/18 # Bowel Movements 1 Narrative: GENERAL:Elderly W/F in NAD SKIN: Warm and dry. HEAD: Atraumatic. Normocephalic. EYES: Pupils equal and round. No scleral icterus. No injection or drainage. ENT: No nasal bleeding or discharge. Mucous membranes pink and moist. NECK: Trachea midline. No JVD. CARDIOVASCULAR: Regular rate and rhythm. RESPIRATORY: Breath sounds decreased bilaterally. + expiratory wheezing GASTROINTESTINAL: Abdomen soft, non-tender, nondistended. Hepatic and splenic margins not palpable. MUSCULOSKELETAL: Extremities without clubbing, cyanosis, or edema. No obvious deformities. NEUROLOGICAL: Awake and alert. No obvious cranial nerve deficits. Motor grossly within normal limits. Normal speech. PSYCHIATRIC: Appropriate mood and affect; insight and judgment normal. Results - Labs CBC & Chem 7: 01/27/18 06:05 01/27/18 06:05 - Procedures none. Assessment and Plan - Assessment (1) Asthmatic bronchitis Code(s): J45.909 - Unspecified asthma, uncomplicated Status: Acute (2) Asthmatic bronchitis with acute exacerbation Code(s): J45.901 - Unspecified asthma with (acute) exacerbation Status: Acute (3) COPD exacerbation Code(s): J44.1 - Chronic obstructive pulmonary disease with (acute) exacerbation Status: Acute (4) Hypoxia Code(s): R09.02 - Hypoxemia Status: Acute (5) Sleep apnea Code(s): G47.30 - Sleep apnea, unspecified Status: Acute (6) Hypothyroidism Code(s): E03.9 - Hypothyroidism, unspecified Status: Acute - Plan 1. Will give O2 at 2 L at home 2. PO ceftin 500 mg BID X7 days 3. Duoneb nebs qid. 4. D/C Symbicort 5. Add Breo 100 mcg, 1puff daily 6. May use home CPAP machine at 7. Prednisone 20 mg BID to taper over 3 weeks. 8. Home today and will F/U in 2 weeks.
== END 2018-01-28 18:50 | disposition home or self-care (01) ==
LOC: PHED 13:57 → PHEDA 15:46 → INTOOBSV 15:46 → OBSVTOIN 15:46 → PH3 17:22
PROVIDERS: ADMIT Internal Medicine; ATTEND Internal Medicine